=== PATIENT | female | born 1995 ===

== ENCOUNTER 2017-04-06 17:20 | Emergency (ER) | payer OTHER ==
[2017-04-06 17:28] VITALS: TEMP 98.4
[2017-04-06 18:00] LABS: BASO # 0.1 K/uL (0.0-0.2); BASO % 1.1 % (0.0-2.0); EOS # 0.1 K/uL (0.0-0.7); EOS % 0.7 % (0.0-4.0); HEMATOCRIT 40.5 % (34.0-47.0); LYMPH % 41.3 % (20.0-40.0); MEAN CORPUSCULAR HEMOGLOBIN 30.3 pg (27.0-31.0); MEAN CORPUSCULAR HGB CONC 33.7 g/dL (33.0-37.0); MEAN PLATELET VOLUME 7.5 fl (7.2-11.7); MONO # 0.6 K/uL (0.0-0.8); MONO % 5.8 % (0.0-10.0); NEUT # 4.9 K/uL (1.8-7.0); NEUT % 51.1 % (50.0-75.0); NRBC % 0.1 % (0.0-0.0); RED CELL DISTRIBUTION WIDTH 13.1 % (11.5-14.5); WHITE BLOOD COUNT 9.6 K/uL (4.8-10.8)
[2017-04-06 18:12] LABS: ALB/GLOB RATIO 1.4 (1.0-2.1); ALKALINE PHOSPHATASE 61 U/L (38-126); ALT/SGPT 34 U/L (9-52); AST/SGOT 26 U/L (14-36); BILIRUBIN,TOTAL 0.4 mg/dl (0.2-1.3); BLOOD UREA NITROGEN 11 mg/dl (7-17); CALCIUM 9.5 mg/dL (8.4-10.2); CARBON DIOXIDE 19 mmol/L (22-30); CHLORIDE 107 mmol/L (98-107); GFR AFRICAN-AMERICAN > 60; GLUCOSE,RANDOM 89 mg/dL (65-105); POTASSIUM 3.9 MMOL/L (3.6-5.0); SODIUM 142 mmol/l (132-148); TOTAL PROTEIN 8.1 G/DL (6.3-8.2)
[2017-04-06] MEDS ORDERED: cefTRIAXone (Rocephin) 1 gm Inj ONE (18:13)
[2017-04-06 18:33] LABS: RBC URINE 44 /hpf (0-3); URINE BACTERIA RARE (<OCC); URINE BILIRUBIN NEGATIVE (NEGATIVE); URINE BLOOD LARGE (NEGATIVE); URINE COLOR YELLOW (YELLOW); URINE GLUCOSE (UA) NEG (Normal); URINE KETONE TRACE mg/dL (NEGATIVE); URINE LEUKOCYTE ESTERASE SMALL Leu/uL (Negative); URINE PROTEIN 30 mg/dL (NEGATIVE); URINE UROBILINOGEN 0.2-1.0 mg/dL (0.2-1.0); WBC URINE 13 /hpf (0-5)
[2017-04-06 19:35] VITALS: BP 113/54; PULSE 78; RESP 17
[2017-04-15 22:01] VITALS: O2SAT 100
== END 2017-04-06 20:44 | disposition home or self-care (01) ==
LOC: H.ER 17:20
DX: N39.0 Urinary tract infection, site not specified (principal)
CPT/HCPCS: 76817; 80053; 81003; 81025; 84702; 85025; 96374; 99283; J0696; J1885

== ENCOUNTER 2017-06-21 11:59 | Emergency (ER) | payer OTHER ==
[2017-06-21 12:09] VITALS: BP 140/66; PULSE 70; RESP 18; TEMP 98.8; O2SAT 98
--- NOTE | 2017-06-21 12:53 | ED PDOC ---
HPI: Dental Pain/Injury Time Seen by Provider: 06/21/17 12:10 Chief Complaint (Nursing): Dental Pain Chief Complaint (Provider): dental pain History Per: Patient History/Exam Limitations: no limitations Current Symptoms Are (Timing): Still Present Additional Complaint(s): Silvia is a 21 year old female who presents to the Emergency Department for dental pain for the past 2 weeks. Patient states she does not have a dentist. Patient admits to taking Motrin today which helped only minimally with pain. She denies fever or chills. She is tolerating liquids and solids. PMD: No Family Provider Past Medical History Reviewed: Historical Data, Nursing Documentation, Vital Signs Vital Signs: Last Vital Signs Temp 98.8 F 06/21/17 12:05 Pulse 70 06/21/17 12:05 Resp 18 06/21/17 12:05 BP 140/66 06/21/17 12:05 Pulse Ox 98 06/21/17 12:05 - Medical History PMH: No Chronic Diseases - Surgical History Surgical History: No Surg Hx - Family History Family History: States: No Known Family Hx - Living Arrangements Living Arrangements: With Family - Social History Current smoker - smoking cessation education provided: Yes (on occasion) Alcohol: None Drugs: Denies - Home Medications Home Medications: Ambulatory Orders Medication Instructions Recorded Cephalexin [cephalexin] 500 mg PO BID #10 cap 04/06/17 traMADol [Ultram] 50 mg PO TID PRN #15 tab 06/21/17 - Allergies Allergies/Adverse Reactions: Allergies Allergy/AdvReac Type Severity Reaction Status Date / Time Penicillins Allergy RASH Verified 04/06/17 17:23 Review of Systems ROS Statement: Except As Marked, All Systems Reviewed And Found Negative ENT: Positive for: Other (Dental Pain) Physical Exam - Reviewed Nursing Documentation Reviewed: Yes Vital Signs Reviewed: Yes - Physical Exam Appears: Positive for: Well, Non-toxic Skin: Positive for: Normal Color Eye Exam: Positive for: Normal appearance ENT: Positive for: Other (Overall good dentition, wisdom tooth to left lower mandible is protruding through gingiva, no infection noted, no dental abscess, airway patent, uvula midline) Respiratory: Negative for: Respiratory Distress Neurologic/Psych: Positive for: Alert, Oriented (x 3) - Laboratory Results Urine POC: Negative - ECG O2 Sat by Pulse Oximetry: 98 (RA) Pulse Ox Interpretation: Normal Medical Decision Making Medical Decision Making: Time: 12:48 Impression: Tooth pain Plan: - Urine - Tylenol 325 mg tab - Ultram 50 mg PO Patient reports improvement of pain after medications given. Prescription provided for Ultram. Patient was advised to follow up as soon as possible with dentist. Scribe Attestation: Documented by Paco Martell, acting as a scribe for PA. BereC Provider Scribe Attestation: All medical record entries made by the Scribe were at my direction and personally dictated by me. I have reviewed the chart and agree that the record accurately reflects my personal performance of the history, physical exam, medical decision making, and the department course for this patient. I have also personally directed, reviewed, and agree with the discharge instructions and disposition. Disposition - Clinical Impression Clinical Impression: Pain, dental - Patient ED Disposition Is Patient to be Admitted: No Counseled Patient/Family Regarding: Diagnosis, Need For Followup, Rx Given - Disposition Referrals: [facility] [Outside] Disposition: Routine/Home Disposition Time: 14:37 Condition: STABLE Additional Instructions: Take prescription medications as directed as needed for pain. Follow-up soon as possible with dentist. Prescriptions: traMADol [Ultram] 50 mg PO TID PRN #15 tab PRN Reason: Pain, Moderate (4-7) Instructions: Toothache (ED) Forms: [employer] (Italian) Print Language: EGYPTIAN
== END 2017-06-21 14:54 | disposition home or self-care (01) ==
LOC: H.ER 11:59
DX: K08.89 Other specified disorders of teeth and supporting structures (principal); F17.200 Nicotine dependence, unspecified, uncomplicated; Z88.0 Allergy status to penicillin

== ENCOUNTER 2018-02-09 14:06 | Emergency (ER) | payer OTHER ==
[2018-02-09 14:23] VITALS: BP 138/84; PULSE 72; RESP 18; TEMP 98.2; O2SAT 98
--- NOTE | 2018-02-09 14:39 | ED PDOC ---
HPI: Female Pain Time Seen by Provider: 02/09/18 14:32 Chief Complaint (Nursing): Female Genitourinary Additional Complaint(s): 22 years old female who is presents to the ED for evaluation of vaginal spotting started today. Patient denies any complaints of pain, vomiting or nausea. PMD: non provided : 1 Para: 0 Past Medical History Reviewed: Historical Data, Nursing Documentation, Vital Signs Vital Signs: Last Vital Signs Temp 98.2 F 02/09/18 14:21 Pulse 72 02/09/18 14:21 Resp 18 02/09/18 14:21 BP 138/84 02/09/18 14:21 Pulse Ox 98 02/09/18 14:21 - Medical History PMH: No Chronic Diseases - Surgical History Surgical History: No Surg Hx - Family History Family History: States: Unknown Family Hx - Home Medications Home Medications: Ambulatory Orders Medication Instructions Recorded Cephalexin [cephalexin] 500 mg PO BID #10 cap 04/06/17 traMADol [Ultram] 50 mg PO TID PRN #15 tab 06/21/17 Multivit/Folic Acid/I 1 tab PO DAILY #100 tab 02/09/18 [ Plus] - Allergies Allergies/Adverse Reactions: Allergies Allergy/AdvReac Type Severity Reaction Status Date / Time Penicillins Allergy RASH Verified 02/09/18 14:23 Review of Systems ROS Statement: Except As Marked, All Systems Reviewed And Found Negative Gastrointestinal: Negative for: Nausea, Vomiting, Abdominal Pain Genitourinary Female: Positive for: Vaginal Bleeding Physical Exam - Reviewed Nursing Documentation Reviewed: Yes Vital Signs Reviewed: Yes - Physical Exam Appears: Positive for: Non-toxic, No Acute Distress Gastrointestinal/Abdominal: Positive for: Normal Exam, Soft. Negative for: Tenderness Extremity: Positive for: Normal ROM. Negative for: Tenderness, Swelling Neurologic/Psych: Positive for: Alert, Oriented (x3) - Laboratory Results Result Diagrams: 02/09/18 14:50 02/09/18 14:50 - ECG O2 Sat by Pulse Oximetry: 98 (RA) Pulse Ox Interpretation: Normal Medical Decision Making Medical Decision Making: Time: 1440 Initial Plan: --ABO/RH Type --Type and screen --Beta-HCG --Urine --Urine dipstick --CBC --Urinalysis --OB Preg 2st Tri & OB Transvag US ----- Scribe Attestation: Documented by Katerine Arnold, acting as a scribe for Brisa Hill MD. Provider Scribe Attestation: All medical record entries made by the Scribe were at my direction and personally dictated by me. I have reviewed the chart and agree that the record accurately reflects my personal performance of the history, physical exam, medical decision making, and the department course for this patient. I have also personally directed, reviewed, and agree with the discharge instructions and disposition. Disposition - Clinical Impression Clinical Impression: Vaginal bleeding during - Disposition Referrals: [facility] [Provider Group] [facility] [Outside] Disposition: Transfer of Care Disposition Time: 15:00 Condition: STABLE Additional Instructions: START CARE SOON POSSIBLE AT YOUR PREFERRED CLINIC STAY WELL HYDRATED AND EAT AT LEAST 3 TIMES A DAY RETURN TO ER FOR: --SEVERE PAIN --HEAVY BLEEDING --FAINTING OR NEAR FAINTING --ANY OTHER WORRISOME SYMPTOMS Prescriptions: Multivit/Folic Acid/I [ Plus] 1 tab PO DAILY #100 tab Instructions: Bleeding With Print Language: EAST TIMORESE Patient Signed Over To: Radha Campbell
[2018-02-09 15:03] LABS: BASO % 0.4 % (0.0-2.0); EOS % 0.3 % (0.0-4.0); HEMOGLOBIN 13.3 g/dL (12.0-16.0); LYMPH # 2.5 K/uL (1.0-4.3); LYMPH % 30.5 % (20.0-40.0); MEAN CORPUSCULAR HEMOGLOBIN 30.6 pg (27.0-31.0); MEAN CORPUSCULAR HGB CONC 34.4 g/dL (33.0-37.0); MEAN PLATELET VOLUME 7.5 fl (7.2-11.7); MONO # 0.4 K/uL (0.0-0.8); MONO % 4.9 % (0.0-10.0); NEUT # 5.3 K/uL (1.8-7.0); NEUT % 63.9 % (50.0-75.0); RBC 4.34 Mil/uL (3.80-5.20); RED CELL DISTRIBUTION WIDTH 14.2 % (11.5-14.5); WHITE BLOOD COUNT 8.3 K/uL (4.8-10.8)
--- NOTE | 2018-02-09 15:16 | ED PDOC ---
- Laboratory Results Result Diagrams: 02/09/18 14:50 02/09/18 14:50 - ECG O2 Sat by Pulse Oximetry: 98 (RA) Pulse Ox Interpretation: Normal Medical Decision Making Medical Decision Making: Time: 1500 -- Received endorsement from Dr. Hill. Patient of first trimester presents to the ED complaining of vaginal bleeding, pending ER workup, assessment and final ER disposition. Accession No. : [id number] Patient Name / ID : CHERRY GALLEGO / [id number] Exam Date : 02/09/2018 15:31:00 ( Approved ) Study Comment : Sex / Age : F / 22Y Creator : Farhan Menezes MD Dictator : Farhan Menezes MD Configuration Consultant : Horticultural Worker : Farhan Menezes MD Approver2 : Report Date : 02/09/2018 16:21:22 My Comment : PROCEDURE: OB Pelvic Ultrasound HISTORY: Vag spotting COMPARISON: None available. FINDINGS: UTERUS: Intrauterine gestational sac identified. This measures 6 mm in mean diameter, out of range for determination of age. No pole identified. No yolk sac visualized. No cardiac activity observed. Tika-gestational hemorrhage: None. Uterus measures 7.3 x 3.8 x 4.6 cm. No mass CERVIX: Long and closed. No cervical abnormality seen. RIGHT OVARY: Measures 2.9 x 1.4 x 3.0 cm. No mass. Normal flow. LEFT OVARY: Measures 3.4 x 2.1 x 2.7 cm. No solid mass. Normal flow. Simple cyst, 2.3 x 1.4 x 2.3 cm. FREE FLUID: None. OTHER FINDINGS: None. IMPRESSION: Possible intrauterine gestational sac without pole. Out of range for determination of age. Please correlate with serial beta HCG evaluation. No subchorionic hemorrhage. beta hcg 993 DW pt findings. Urgent follow up with [facility] or preferred doll surgeon. Reasons to rter reviewed w patient. all questions/concerns answered/addressed. Scribe Attestation: Documented by Vince Bearden acting as a scribe for Dr. Radha Campbell. Provider Scribe Attestation: All medical record entries made by the Scribe were at my direction and personally dictated by me. I have reviewed the chart and agree that the record accurately reflects my personal performance of the history, physical exam, medical decision making, and the department course for this patient. I have also personally directed, reviewed, and agree with the discharge instructions and disposition. Disposition Counseled Patient/Family Regarding: Studies Performed, Diagnosis, Need For Followup, Rx Given - Clinical Impression Clinical Impression: Vaginal bleeding during - POA Present On Arrival: None - Disposition [facility]errals: [facility] [Outside] [facility] [Provider Group] Disposition: Routine/Home Disposition Time: 17:37 Condition: STABLE Additional Instructions: START CARE SOON POSSIBLE AT YOUR PREFERRED CLINIC STAY WELL HYDRATED AND EAT AT LEAST 3 TIMES A DAY RETURN TO ER FOR: --SEVERE PAIN --HEAVY BLEEDING --FAINTING OR NEAR FAINTING --ANY OTHER WORRISOME SYMPTOMS Prescriptions: Multivit/Folic Acid/I [ Plus] 1 tab PO DAILY #100 tab Instructions: Bleeding With Print Language: PASHTO
[2018-02-09 15:17] LABS: ALB/GLOB RATIO 1.4 (1.0-2.1); ALBUMIN 4.5 g/dL (3.5-5.0); ALT/SGPT 32 U/L (9-52); AST/SGOT 22 U/L (14-36); BLOOD UREA NITROGEN 8 mg/dl (7-17); CALCIUM 9.4 mg/dL (8.4-10.2); GFR AFRICAN-AMERICAN > 60; GFR NON-AFRICAN AMERICAN > 60
[2018-02-09 15:35] LABS: SQUAMOUS EPITHIAL 1 /hpf (0-5); URINE BILIRUBIN NEGATIVE (NEGATIVE); URINE BLOOD MODERATE (NEGATIVE); URINE CLARITY SLIGHTY-CLOUDY (Clear); URINE COLOR YELLOW (YELLOW); URINE GLUCOSE (UA) NEG (Normal); URINE LEUKOCYTE ESTERASE NEG Leu/uL (Negative); URINE PROTEIN NEGATIVE (NEGATIVE); URINE UROBILINOGEN 0.2-1.0 mg/dL (0.2-1.0)
--- NOTE | 2018-02-09 16:23 | US ---
PROCEDURE: OB Pelvic Ultrasound HISTORY: Vag spotting COMPARISON: None available. FINDINGS: UTERUS: Intrauterine gestational sac identified. This measures 6 mm in mean diameter, out of range for determination of age. No pole identified. No yolk sac visualized. No cardiac activity observed. Tika-gestational hemorrhage: None. Uterus measures 7.3 x 3.8 x 4.6 cm. No mass CERVIX: Long and closed. No cervical abnormality seen. RIGHT OVARY: Measures 2.9 x 1.4 x 3.0 cm. No mass. Normal flow. LEFT OVARY: Measures 3.4 x 2.1 x 2.7 cm. No solid mass. Normal flow. Simple cyst, 2.3 x 1.4 x 2.3 cm. FREE FLUID: None. OTHER FINDINGS: None. IMPRESSION: Possible intrauterine gestational sac without pole. Out of range for determination of age. Please correlate with serial beta HCG evaluation. No subchorionic hemorrhage.
== END 2018-02-09 17:49 | disposition home or self-care (01) ==
LOC: H.ER 14:06
DX: O20.9 Hemorrhage in early pregnancy, unspecified (principal); Z88.0 Allergy status to penicillin

== ENCOUNTER 2018-02-10 22:11 | Emergency (ER) | payer OTHER ==
[2018-02-10 22:17] VITALS: RESP 16; TEMP 98.3
--- NOTE | 2018-02-10 22:43 | ED PDOC ---
HPI: Female Pain Time Seen by Provider: 02/10/18 22:18 Chief Complaint (Nursing): Female Genitourinary Chief Complaint (Provider): Female Genitourinary History Per: Patient History/Exam Limitations: no limitations Onset/Duration Of Symptoms: Days (x1) Current Symptoms Are (Timing): Still Present Additional Complaint(s): 22 y/o female with a PMHx of presents to the ED complaining of vaginal bleeding that started as spotting yesterday. Patient states she is 6 weeks by date. Patient has not started care yet. Patient was seen in this ER yesterday for spotting. On ultrasound performed yesterday found gestation sac with no pole. [facility], started to bleed more heavily. Today, patient reports of bright red blood. Denies pain and lightheadedness. PMD: None Provided : 1 Para: 0 Past Medical History Reviewed: Historical Data, Nursing Documentation, Vital Signs Vital Signs: Last Vital Signs Temp 98.3 F 02/10/18 22:14 Pulse 73 02/10/18 22:14 Resp 16 02/10/18 22:14 BP 138/78 02/10/18 22:14 Pulse Ox 99 02/10/18 22:14 - Medical History PMH: No Chronic Diseases - Surgical History Surgical History: No Surg Hx - Family History Family History: States: No Known Family Hx - Social History Current smoker - smoking cessation education provided: No - Home Medications Home Medications: Ambulatory Orders Medication Instructions Recorded Cephalexin [cephalexin] 500 mg PO BID #10 cap 04/06/17 traMADol [Ultram] 50 mg PO TID PRN #15 tab 06/21/17 Multivit/Folic Acid/I 1 tab PO DAILY #100 tab 02/09/18 [ Plus] - Allergies Allergies/Adverse Reactions: Allergies Allergy/AdvReac Type Severity Reaction Status Date / Time Penicillins Allergy RASH Verified 02/09/18 14:23 Review of Systems ROS Statement: Except As Marked, All Systems Reviewed And Found Negative Genitourinary Female: Positive for: Vaginal Bleeding (Bright red blood). Negative for: Pelvic Pain Physical Exam - Reviewed Nursing Documentation Reviewed: Yes Vital Signs Reviewed: Yes - Physical Exam Appears: Positive for: Well, No Acute Distress Skin: Positive for: Normal Color, Warm, Dry. Negative for: Pallor Gastrointestinal/Abdominal: Positive for: Normal Exam, Soft. Negative for: Tenderness - ECG O2 Sat by Pulse Oximetry: 99 (RA) Pulse Ox Interpretation: Normal Medical Decision Making Medical Decision Making: Time: 2239 Impression: Threatened Miscarriage Plan: -- ED Urine Dipstick -- ED Urine -- Beta-HCG, Quantitative -- Discussed with patient, symptoms appear to be consistent with first trimester miscarriage. -- Will repeat Beta-HCG even though it has not been 48 hours since previous. -- Patient advised that if Beta-HCG is still elevated, patient should need to repeat blood work in 48 - 72 hours. Patient also advised that if bleeding becomes heavier and persistent, it is most likely due to a legal miscarriage. -- Previous blood work shows her blood type to be A+. --beta hcg mildly increased. DWpt findings and advised to return in 48 hours for repeat bloodwork. Reasons to RTER reviewed and pt stable for dc. Scribe Attestation: Documented by Vince Bearden acting as a scribe for Dr. Radha Campbell. Provider Scribe Attestation: All medical record entries made by the Scribe were at my direction and personally dictated by me. I have reviewed the chart and agree that the record accurately reflects my personal performance of the history, physical exam, medical decision making, and the department course for this patient. I have also personally directed, reviewed, and agree with the discharge instructions and disposition. Disposition - Clinical Impression Clinical Impression: Threatened miscarriage - Disposition Disposition: Routine/Home Disposition Time: 23:00 Condition: STABLE Additional Instructions: REST AND DRINK PLENTY OF HYDRATING FLUIDS TAKE TYLENOL FOR PAIN PELVIC REST: NO SEX. NO TAMPONS. NO DOUCHE. NOTHING IN VAGINA UNTIL BLEEDING HAS STOPPED. RETURN IN 48-72 HOURS FOR REPEAT BLOODWORK. RETURN TO ER IMMEDIATELY FOR: --BLEEDING MORE THAN ONE PAD AN HOUR --SEVERE INTRACTABLE PAIN --FAINTING OR NEAR FAINTING Instructions: Threatened Miscarriage (DC) Forms: [facility] School/Work Excuse Print Language: ARMENIAN
[2018-02-10 23:38] VITALS: BP 128/69; PULSE 80
[2018-02-10 23:43] VITALS: O2SAT 99
== END 2018-02-10 23:38 | disposition home or self-care (01) ==
LOC: H.ER 22:11
DX: O20.0 Threatened abortion (principal); Z3A.01 Less than 8 weeks gestation of pregnancy; Z88.0 Allergy status to penicillin

== ENCOUNTER 2018-02-19 16:33 | Emergency (ER) | payer OTHER ==
[2018-02-19 16:53] VITALS: O2SAT 100
[2018-02-19 17:33] LABS: SQUAMOUS EPITHIAL < 1 /hpf (0-5); URINE BACTERIA RARE (<OCC); URINE BILIRUBIN NEGATIVE (NEGATIVE); URINE BLOOD LARGE (NEGATIVE); URINE CLARITY CLEAR (Clear); URINE COLOR YELLOW (YELLOW); URINE GLUCOSE (UA) NEG (Normal); URINE LEUKOCYTE ESTERASE NEG Leu/uL (Negative); URINE PROTEIN NEGATIVE (NEGATIVE); URINE UROBILINOGEN 0.2-1.0 mg/dL (0.2-1.0)
[2018-02-19 17:36] LABS: BASO # 0.1 K/uL (0.0-0.2); BASO % 1.2 % (0.0-2.0); EOS # 0.1 K/uL (0.0-0.7); EOS % 0.9 % (0.0-4.0); HEMOGLOBIN 12.9 g/dL (12.0-16.0); LYMPH # 2.8 K/uL (1.0-4.3); LYMPH % 32.2 % (20.0-40.0); MEAN CELL VOLUME 90.1 fl (81.0-99.0); MEAN CORPUSCULAR HEMOGLOBIN 30.6 pg (27.0-31.0); MEAN CORPUSCULAR HGB CONC 33.9 g/dL (33.0-37.0); MEAN PLATELET VOLUME 7.3 fl (7.2-11.7); MONO # 0.5 K/uL (0.0-0.8); MONO % 6.1 % (0.0-10.0); NEUT # 5.3 K/uL (1.8-7.0); NEUT % 59.6 % (50.0-75.0); RBC 4.24 Mil/uL (3.80-5.20); WHITE BLOOD COUNT 8.8 K/uL (4.8-10.8)
[2018-02-19 18:08] LABS: PARTIAL THROMBOPLASTIN TIME 32.1 Seconds (25.6-37.1)
--- NOTE | 2018-02-19 18:20 | ED PDOC ---
HPI: Female Pain Time Seen by Provider: 02/19/18 16:56 Chief Complaint (Nursing): Female Genitourinary Chief Complaint (Provider): Vaginal bleeding History Per: Patient History/Exam Limitations: no limitations Additional Complaint(s): Pt reports vaginal bleeding X 1 day, started after having intercourse. Was evaluated in [facility] ED for same last week, states bleeding stopped 2 days ago. Denies abdominal pain, nausea, vomiting. No care. Abnormal Vaginal Bleeding: Yes : 1 Para: 0 Past Medical History Reviewed: Nursing Documentation, Vital Signs Vital Signs: Last Vital Signs Temp 98.3 F 02/19/18 16:51 Pulse 77 02/19/18 16:51 Resp 20 02/19/18 16:51 BP 137/89 02/19/18 16:51 Pulse Ox 100 02/19/18 16:51 - Medical History PMH: No Chronic Diseases - Family History Family History: States: Unknown Family Hx - Social History Current smoker - smoking cessation education provided: No Alcohol: None - Home Medications Home Medications: Ambulatory Orders Medication Instructions Recorded Cephalexin [cephalexin] 500 mg PO BID #10 cap 04/06/17 traMADol [Ultram] 50 mg PO TID PRN #15 tab 06/21/17 Multivit/Folic Acid/I 1 tab PO DAILY #100 tab 02/09/18 [ Plus] - Allergies Allergies/Adverse Reactions: Allergies Allergy/AdvReac Type Severity Reaction Status Date / Time Penicillins Allergy RASH Verified 02/19/18 16:51 Review of Systems Constitutional: Negative for: Fever, Chills Cardiovascular: Negative for: Chest Pain Respiratory: Negative for: Cough, Shortness of Breath Gastrointestinal: Negative for: Nausea, Vomiting, Abdominal Pain, Diarrhea Genitourinary Female: Positive for: Vaginal Bleeding. Negative for: Dysuria, Hematuria, Vaginal Discharge Musculoskeletal: Negative for: Back Pain Skin: Negative for: Rash, Lesions Neurological: Negative for: Headache Physical Exam - Reviewed Nursing Documentation Reviewed: Yes Vital Signs Reviewed: Yes - Physical Exam Appears: Positive for: Well, No Acute Distress Skin: Positive for: Normal Color, Warm, Dry Eye Exam: Positive for: Normal appearance, EOMI, PERRL Cardiovascular/Chest: Positive for: Regular Rate, Rhythm Respiratory: Positive for: Normal Breath Sounds Gastrointestinal/Abdominal: Positive for: Normal Exam, Bowel Sounds, Soft. Negative for: Tenderness Neurologic/Psych: Positive for: Alert, Oriented - Laboratory Results Result Diagrams: 02/19/18 17:24 02/19/18 17:24 - ECG O2 Sat by Pulse Oximetry: 100 Medical Decision Making Medical Decision Makin yo female with vaginal bleeding. - labs - pelvic ultrasound T&S (02/09/18): A+ Disposition - Clinical Impression Clinical Impression: Threatened miscarriage - Disposition Referrals: [facility] [Outside] [facility] [Outside] Disposition: Transfer of Care Disposition Time: 19:00 Condition: IMPROVED Additional Instructions: follow up with your drycleaner in 2 days you need to have pelvic rest which means no sex, no tampons until bleeding has resolved return to the ED with any worsening or concerning symptoms such as increased bleeding or pain or other concerns. Instructions: Threatened Miscarriage (DC) Forms: [employer] (Singaporean) Print Language: ESTONIAN Patient Signed Over To: Carroll Ceballos
[2018-02-19 18:26] LABS: ALB/GLOB RATIO 1.5 (1.0-2.1); ALBUMIN 4.5 g/dL (3.5-5.0); ALT/SGPT 34 U/L (9-52); AST/SGOT 20 U/L (14-36); BLOOD UREA NITROGEN 14 mg/dl (7-17); CALCIUM 8.9 mg/dL (8.4-10.2); GFR AFRICAN-AMERICAN > 60; GFR NON-AFRICAN AMERICAN > 60
[2018-02-19 19:12] LABS: INR 0.9
--- NOTE | 2018-02-19 19:18 | ED PDOC ---
- Laboratory Results Result Diagrams: 02/19/18 17:24 02/19/18 17:24 - ECG O2 Sat by Pulse Oximetry: 100 Medical Decision Making Medical Decision Making: Time: 19:00 Patient care endorsed from Dr. Hill to Dr. Ceballos pending US. Time: 21:48 US FINDINGS: Gestation: Intrauterine gestational sac, no yolk sac or pole noted. Mean sac diameter measured at 0.9 cm. Uterus/cervix: No acute abnormality as visualized. No myometrial mass. Ovaries: Bilateral Doppler flow. 1.7 cm left ovarian cyst. Free fluid: No free fluid. IMPRESSION: Intrauterine gestational sac, no yolk sac or pole noted. Measurement out of range for determination of age. Correlate clinically. 1.7 cm left ovarian cyst Results discussed w patient at bedside. instructed on pelvic rest. no sex, tampons, exercise until bleeding stops follow up with gynecologist (she states she wants to follow up in [facility]) in 2 days or come back to the ER explained to her the significance of the findings on US ----- Scribe Attestation: Documented by Pedro Dominique, acting as a scribe for Carroll Ceballos MD Provider Scribe Attestation: All medical record entries made by the Scribe were at my direction and personally dictated by me. I have reviewed the chart and agree that the record accurately reflects my personal performance of the history, physical exam, medical decision making, and the department course for this patient. I have also personally directed, reviewed, and agree with the discharge instructions and disposition. Disposition Counseled Patient/Family Regarding: Studies Performed, Diagnosis, Need For Followup - Clinical Impression Clinical Impression: Threatened miscarriage - POA Present On Arrival: None - Disposition Referrals: [facility] [Outside] [facility] [Outside] Disposition: Routine/Home Disposition Time: 22:00 Condition: IMPROVED Additional Instructions: follow up with your kiln charger in 2 days you need to have pelvic rest which means no sex, no tampons until bleeding has resolved return to the ED with any worsening or concerning symptoms such as increased bleeding or pain or other concerns. Instructions: Threatened Miscarriage (DC) Forms: [employer] (Hungarian) Print Language: TELUGU
[2018-02-19 22:33] VITALS: BP 126/74; PULSE 68; RESP 18; TEMP 98.6
--- NOTE | 2018-02-20 09:41 | US ---
Date of service: 02/19/2018 PROCEDURE: First trimester ultrasound HISTORY: Episodic bleeding within 24 hours of this study. Beta HCG results unknown. COMPARISON: 02/09/2018. TECHNIQUE: Standard protocol for this study/examination. FINDINGS: Gestational sac measurement 0.91 cm. Out of range. Below threshold for calculation of reliable gestational age. Gestational age based on LMP 8 weeks 2 days. Uterus measures 4 x 6.7 x 9 cm. Right adnexa 1.8 x 1.9 x 3.7 cm. Left adnexa 2 x 2.8 x 2.8 cm. Incidental 1.4 x 1.7 cm left adnexal cysts. IMPRESSION: Small gestational sac. Absence of pole, yolk sac. Consideration to blighted ovum. Concordant results (preliminary interpretation) provided by [facility]. Procedure Completed: 21:11. Preliminary ([facility]) Report: Dictated and Authenticated: 21:48. Final Interpretation: 09:48. February 20, 2018.
== END 2018-02-19 22:50 | disposition home or self-care (01) ==
LOC: H.ER 16:33
DX: O20.0 Threatened abortion (principal); N83.202 Unspecified ovarian cyst, left side; Z88.0 Allergy status to penicillin

== ENCOUNTER 2018-02-24 13:24 | Emergency (ER) | payer OTHER ==
--- NOTE | 2018-02-24 14:05 | ED PDOC ---
HPI: Female Pain Time Seen by Provider: 02/24/18 13:42 Chief Complaint (Nursing): Female Genitourinary Chief Complaint (Provider): Vaginal bleeding History Per: Patient Additional Complaint(s): 22 yo female, no PMH, presents to ED for evaluation of continued vaginal bleeding in early . No abdominal cramping. Pt seen and evaluated here in the ED for the same on 02/09, 02/10, 02/19 for the same complaints. Beta on 02/19 was 2925 US: Small gestational sac. Absence of pole, yolk sac. Consideration to blighted ovum. Past Medical History Reviewed: Nursing Documentation, Vital Signs Vital Signs: Last Vital Signs Temp 97.5 F L 02/24/18 13:28 Pulse 98 H 02/24/18 13:28 Resp 20 02/24/18 13:28 BP Pulse Ox 98 02/24/18 13:28 - Surgical History Surgical History: No Surg Hx - Family History Family History: States: Unknown Family Hx - Living Arrangements Living Arrangements: With Family - Social History Current smoker - smoking cessation education provided: No Alcohol: None Drugs: Denies - Home Medications Home Medications: Ambulatory Orders Medication Instructions Recorded Cephalexin [cephalexin] 500 mg PO BID #10 cap 04/06/17 traMADol [Ultram] 50 mg PO TID PRN #15 tab 06/21/17 Multivit/Folic Acid/I 1 tab PO DAILY #100 tab 02/09/18 [ Plus] - Allergies Allergies/Adverse Reactions: Allergies Allergy/AdvReac Type Severity Reaction Status Date / Time Penicillins Allergy RASH Verified 02/19/18 16:51 Review of Systems ROS Statement: Except As Marked, All Systems Reviewed And Found Negative Genitourinary Female: Positive for: Vaginal Bleeding Physical Exam - Reviewed Nursing Documentation Reviewed: Yes Vital Signs Reviewed: Yes - Physical Exam Appears: Positive for: Well, Non-toxic, No Acute Distress Head Exam: Positive for: ATRAUMATIC, NORMAL INSPECTION, NORMOCEPHALIC Skin: Positive for: Normal Color, Warm, DRY Eye Exam: Positive for: EOMI, Normal appearance, PERRL ENT: Positive for: Normal ENT Inspection Neck: Positive for: Normal, Painless ROM Cardiovascular/Chest: Positive for: Regular Rate, Rhythm Respiratory: Positive for: CNT, Normal Breath Sounds Gastrointestinal/Abdominal: Positive for: Normal Exam, Soft. Negative for: Tenderness Pelvic Exam: Positive for: External Exam Normal. Negative for: Active Bleeding Back: Positive for: Normal Inspection Extremity: Positive for: Normal ROM Neurologic/Psych: Positive for: Alert, Oriented - Laboratory Results Result Diagrams: 02/24/18 14:10 - ECG O2 Sat by Pulse Oximetry: 98 Medical Decision Making Medical Decision Making: Blood type A+ Beta on 02/19: 2925 Today: 3555 US:Small gestational sac. Absence of pole, yolk sac. Consideration to blighted ovum. Pt educated on results and demonstrated full understanding Ramifications of blighted ovum discussed as well. Pt advised to follow up with OB. Return to ED with any concerns at anytime Disposition - Clinical Impression Clinical Impression: Vaginal bleeding during , Threatened miscarriage - Patient ED Disposition Is Patient to be Admitted: No - Disposition Disposition: Routine/Home Disposition Time: 16:07 Condition: STABLE Instructions: Bleeding With Forms: [facility] (Chinese)
[2018-02-24 14:33] LABS: BASO # 0.1 K/uL (0.0-0.2); HEMOGLOBIN 13.1 g/dL (12.0-16.0); LYMPH # 2.4 K/uL (1.0-4.3); NRBC % 0.1 % (0.0-0.0)
[2018-02-24 14:36] LABS: BASO % 0.7 % (0.0-2.0); EOS % 0.5 % (0.0-4.0); LYMPH % 24.2 % (20.0-40.0); MEAN CELL VOLUME 89.3 fl (81.0-99.0); MEAN CORPUSCULAR HEMOGLOBIN 30.7 pg (27.0-31.0); MEAN CORPUSCULAR HGB CONC 34.4 g/dL (33.0-37.0); MEAN PLATELET VOLUME 7.1 fl (7.2-11.7); MONO # 0.5 K/uL (0.0-0.8); NEUT % 69.6 % (50.0-75.0); RBC 4.28 Mil/uL (3.80-5.20); RED CELL DISTRIBUTION WIDTH 14.1 % (11.5-14.5); WHITE BLOOD COUNT 10.1 K/uL (4.8-10.8)
[2018-02-24 14:41] LABS: SQUAMOUS EPITHIAL < 1 /hpf (0-5); URINE BACTERIA RARE (<OCC); URINE BILIRUBIN NEGATIVE (NEGATIVE); URINE BLOOD LARGE (NEGATIVE); URINE CLARITY SLIGHTY-CLOUDY (Clear); URINE COLOR YELLOW (YELLOW); URINE GLUCOSE (UA) NEG (Normal); URINE LEUKOCYTE ESTERASE NEG Leu/uL (Negative); URINE PROTEIN NEGATIVE (NEGATIVE); URINE UROBILINOGEN 0.2-1.0 mg/dL (0.2-1.0)
--- NOTE | 2018-02-24 16:20 | US ---
PROCEDURE: OB Pelvic Ultrasound HISTORY: bleeding COMPARISON: 02/19/2018 FINDINGS: UTERUS: There is a cystic structure in the lower uterine segment endometrial echo complex measuring 10 mm in mean diameter. There is no pole identified. This measures in significantly larger than on prior examination of 02/19/2018. This represents gestational sac its diameter corresponds to 5 weeks 0 days. Likely nonviable gestation but correlate with serial beta HCG. There is a small perigestational hemorrhage noted. This measures approximately 11 x 13 mm. Uterus measures 7.2 x 4.9 x 3.4 cm. No mass CERVIX: Long and closed. No cervical abnormality seen. RIGHT OVARY: Measures 3.1 x 2.6 x 2.0 cm. No mass. Normal flow. LEFT OVARY: Measures 4.2 x 3.2 x 2.5 cm. No mass. Normal flow. Physiologic cyst, 1.4 x 1.8 x 2.1 cm. FREE FLUID: None. OTHER FINDINGS: None. IMPRESSION: Empty gestational sac equivalent to 5 weeks 0 days gestational age. Lower uterine segment location. Small perigestational hemorrhage.
[2018-02-24 16:22] VITALS: BP 122/71; PULSE 82; RESP 16; TEMP 98.2; O2SAT 100
== END 2018-02-24 16:22 | disposition home or self-care (01) ==
LOC: H.ER 13:24
DX: O20.0 Threatened abortion (principal); Z88.0 Allergy status to penicillin

== ENCOUNTER 2018-03-07 10:28 | Emergency (ER) | payer OTHER ==
[2018-03-07 10:43] VITALS: RESP 18; O2SAT 99; BMI 34.2
--- NOTE | 2018-03-07 11:32 | ED PDOC ---
HPI: Female Pain Time Seen by Provider: 03/07/18 10:42 Chief Complaint (Nursing): Female Genitourinary Chief Complaint (Provider): Vaginal Bleeding, History Per: Patient History/Exam Limitations: no limitations Onset/Duration Of Symptoms: Days (8) Associated Symptoms: denies: Nausea, Vomiting Additional Complaint(s): 22 year old female presents to the ED for further evaluation of as 3 weeks ago she had a (+)home test. Patient complains of vaginal bleeding for the past 8 days, however, notes it stopped this morning. She states she used 2 pads per day. Patient reports having trouble making an appointment with her OBGYN, which made her come to the ED today. She states she was seen here in the ED on onset of symptoms and reports it was her only care. Patient notes this is her first and she is compliant with her vitamins. She reports urinary frequency but denies any dysuria , hematuria, abdominal pain, nausea or vomiting. Patient states on 02/09/2018 blood work showed her blood type is A+. LNMP: December 23, 2017 PMD: none provided OB-SITE MEDICAL DIRECTOR: Kizzy Neff APN Past Medical History Reviewed: Historical Data, Nursing Documentation, Vital Signs Vital Signs: Last Vital Signs Temp 98.4 F 03/07/18 10:42 Pulse 68 03/07/18 10:42 Resp 18 03/07/18 10:42 BP 122/80 03/07/18 10:42 Pulse Ox 99 03/07/18 10:42 - Medical History PMH: No Chronic Diseases - Surgical History Surgical History: No Surg Hx - Family History Family History: States: Unknown Family Hx - Social History Current smoker - smoking cessation education provided: No Alcohol: None Drugs: Denies - Home Medications Home Medications: Ambulatory Orders Medication Instructions Recorded Cephalexin [cephalexin] 500 mg PO BID #10 cap 04/06/17 traMADol [Ultram] 50 mg PO TID PRN #15 tab 06/21/17 Multivit/Folic Acid/I 1 tab PO DAILY #100 tab 02/09/18 [ Plus] - Allergies Allergies/Adverse Reactions: Allergies Allergy/AdvReac Type Severity Reaction Status Date / Time Penicillins Allergy RASH Verified 03/07/18 10:52 Review of Systems ROS Statement: Except As Marked, All Systems Reviewed And Found Negative Gastrointestinal: Negative for: Nausea, Vomiting, Abdominal Pain Genitourinary Female: Positive for: Frequency, Vaginal Bleeding. Negative for: Dysuria, Hematuria Physical Exam - Reviewed Nursing Documentation Reviewed: Yes Vital Signs Reviewed: Yes - Physical Exam Comments: GENERALIZED APPEARANCE: Patient is awake, alert, oriented x3 in no acute distress. VITAL SIGNS: Per nurse's note, reviewed by me. SKIN: Warm, dry; (-) pallor (-) cyanosis, (-) jaundice (-) rash. EYES:(-) conjunctival pallor, (-) scleral icterus. ENMT: Airway patent: (-) stridor; mucous membranes moist. NECK: Supple, FROM CHEST AND RESPIRATORY:(-) rales, (-) rhonchi, (-) wheezes; breath sounds equal bilaterally. Respirations even and nonlabored. HEART AND CARDIOVASCULAR: (-) murmur ABDOMEN AND GI: Soft, (-) tenderness, (-) guarding, (-) rebound, (-) palpable masses (-) distention (-) CVA tenderness EXTREMITIES: (-) deformity, (-) edema. NEURO AND PSYCH: Mental status as above. Cranial nerves grossly intact; strength symmetric. Gait: steady. Speech: clear. - Laboratory Results Result Diagrams: 03/07/18 11:19 03/07/18 11:19 Urine POC: Negative Urine dip results: Positive for: Blood (small). Negative for: Leukocyte Esterase, Nitrate, Ketones, Glucose, Bilirubin, Protein - ECG O2 Sat by Pulse Oximetry: 99 (RA) Pulse Ox Interpretation: Normal Medical Decision Making Medical Decision Making: Time: 1105 Initial Impression: vaginal bleeding and Initial Plan: --CMP --Beta- HCG --Urine --Urine dipstick --CBC --IV access 1130 Udip Reviewed (-) evidence of UTI. Upreg: Negative 1210 CBC and CMP grossly unremarkable. Beta Quant today: 14.16 Beta Quant 02/24/18: 3555.4 Diagnostics discussed with demonstrated understanding using Radha Jones as photographic equipment assembler. All questions answered. Patient states she was able to schedule an appointment with her OBGYN for tomorrow and will follow up there as well. Patient offers no complaints at this time. On exam, patient remains AAOx3, in no acute distress. Lungs clear to auscultation, cardiac RRR, abdomen soft, non- tender, repeat neuro exam shows no focal findings. Vitals stable. Diagnosis of spontaneous , miscarriage d/w the patient. Based on history, exam and diagnostic results, plan will be for outpatient follow up. Patient instructed to follow-up with pmd / referral provided / the clinic in 1- 2 days without fail. Return to the emergency room at any time for any new or worsening symptoms. Patient states she fully agrees with and understands discharge instructions. States that she agrees with the plan and disposition. Verbalized and repeated discharge instructions and plan. I have given the patient opportunity to ask any additional questions. -------- Scribe Attestation: Documented by Katerine Arnold, acting as a scribe for JUANPABLO Montero. Provider Scribe Attestation: All medical record entries made by the Scribe were at my direction and personally dictated by me. I have reviewed the chart and agree that the record accurately reflects my personal performance of the history, physical exam, medical decision making, and the department course for this patient. I have also personally directed, reviewed, and agree with the discharge instructions and disposition. Disposition - Clinical Impression Clinical Impression: Miscarriage - Patient ED Disposition Is Patient to be Admitted: No Counseled Patient/Family Regarding: Studies Performed, Diagnosis, Need For Followup - Disposition [facility] [Outside] Disposition: Routine/Home Disposition Time: 12:15 Condition: FAIR Additional Instructions: La atencin mdica de emergencia que recibi hoy estaba dirigida a yolanda sntomas agudos. Si le prescribieron algn medicamento, llnelo y tome segn las indicaciones. Yolanda sntomas pueden tardar varios rowe en resolverse. Regrese al Departamento de Emergencia si yolanda sntomas empeoran, no mejoran o si tiene alg n otro problema. Comunquese con dickson mdico en 2 rowe para suhail reevaluacin y seguimiento / o llame a luan de los mdicos / clnicas a los que diaz referido y que figura en el formulario de Informacin de visitas del paciente que se incluye en dickson paquete de yola. Traiga todos los documentos que recibi al momento del yola junto con los medicamentos que est tomando en dickson visita de seguimiento. Nuestro tratamiento no puede reemplazar la atencin mdica en curso por parte de un proveedor de atencin primaria (PCP) fuera del departamento de emergencias. Instructions: Miscarriage, Dealing With Miscarriage Forms: [employer] ([employer]) Print Language: ENGLISH - POA Present On Arrival: None Results - Lab Results Lab Results: 03/07/18 03/07/18 03/07/18 11:19 11:19 11:19 WBC 7.8 RBC 4.46 Hgb 13.4 Hct 39.8 MCV 89.2 MCH 30.1 MCHC 33.8 RDW 14.2 Plt Count 318 D MPV 7.3 Neut % (Auto) 56.3 Lymph % (Auto) 37.1 [place] % (Auto) 5.3 Eos % (Auto) 0.6 Baso % (Auto) 0.7 Neut # (Auto) 4.4 Lymph # (Auto) 2.9 [place] # (Auto) 0.4 Eos # (Auto) 0.0 Baso # (Auto) 0.1 Sodium 138 Potassium 4.8 Chloride 108 H Carbon Dioxide 19 L Anion Gap 16 BUN 12 Creatinine 0.5 L Est GFR ( Amer) > 60 Est GFR (Non-Af Amer) > 60 Random Glucose 102 Calcium 9.2 Beta HCG, Quant 14.16
[2018-03-07 11:37] LABS: BASO # 0.1 K/uL (0.0-0.2); BASO % 0.7 % (0.0-2.0); EOS % 0.6 % (0.0-4.0); HEMOGLOBIN 13.4 g/dL (12.0-16.0); LYMPH # 2.9 K/uL (1.0-4.3); LYMPH % 37.1 % (20.0-40.0); MEAN CELL VOLUME 89.2 fl (81.0-99.0); MEAN CORPUSCULAR HEMOGLOBIN 30.1 pg (27.0-31.0); MEAN CORPUSCULAR HGB CONC 33.8 g/dL (33.0-37.0); MEAN PLATELET VOLUME 7.3 fl (7.2-11.7); MONO # 0.4 K/uL (0.0-0.8); MONO % 5.3 % (0.0-10.0); NEUT # 4.4 K/uL (1.8-7.0); NEUT % 56.3 % (50.0-75.0); NRBC % 0.1 % (0.0-0.0); RBC 4.46 Mil/uL (3.80-5.20); RED CELL DISTRIBUTION WIDTH 14.2 % (11.5-14.5); WHITE BLOOD COUNT 7.8 K/uL (4.8-10.8)
[2018-03-07 11:49] LABS: BLOOD UREA NITROGEN 12 mg/dl (7-17); CALCIUM 9.2 mg/dL (8.4-10.2); GFR NON-AFRICAN AMERICAN > 60
[2018-03-07 12:38] VITALS: BP 151/99; PULSE 70; TEMP 98
== END 2018-03-07 12:38 | disposition home or self-care (01) ==
LOC: H.ER 10:28
DX: O03.9 Complete or unspecified spontaneous abortion without complication (principal); Z88.0 Allergy status to penicillin